=== PATIENT | male | born 1950 | race Caucasian/White ===

== ENCOUNTER → 2018-06-18 10:58 | Outpatient (REF) | payer MEDICARE, OTHER, SELFPAY ==
[2018-06-18 11:34] LABS: HCT 41.9 % (40.0-50.0); HGB 14.5 g/dL (13.5-17.5); Mean Corp. HGB Concentration 34.6 g/dL (32.0-36.0); Mean Corpuscular Hemoglobin 31.5 pg (27.0-33.0); Mean Corpuscular Volume 90.9 fL (80-95); Mean Platelet Volume 9.3 fL (8.0-11.0); Platelet Count 267 x1000/uL (130-400); RBC 4.61 m/cumm (4.50-6.00); White Blood Cell Count 7.38 k/cumm (4.4-10.8)
[2018-06-18 12:13] LABS: ALT 22 U/L (12-78); AST 18 U/L (15-37); Albumin 3.8 g/dL (3.4-5.0); Alkaline Phosphatase 126 U/L (46-116); Anion Gap 9.2 mmol/L (3-11); BUN 22 mg/dL (7-18); Bilirubin, Total 0.4 mg/dL (0.2-1.0); CO2 27.8 mmol/L (21.0-32.0); CREATININE 1.13 mg/dL (0.70-1.30); Calcium 8.8 mg/dL (8.5-10.1); Chloride 104 mmol/L (98-107); Glucose 107 mg/dL (70-100); Potassium 4.7 mmol/L (3.5-5.1); Sodium 141 mmol/L (136-145); Total Protein 6.6 g/dL (6.4-8.2)
== END ==
LOC: LBO 10:58
PROVIDERS: PCP Nurse Practitioner Family; Visit Provider Podiatrist Foot & Ankle Surgery
DX: B35.1 Tinea unguium (principal)
CPT/HCPCS: 36415; 80053; 85027

== ENCOUNTER 2018-06-26 14:00 | Outpatient (RCR) | payer MEDICARE, OTHER, SELFPAY ==
--- NOTE | 2018-06-11 14:09 | PTTR_ITS ---
DATE: 06/11/18 SUBJECTIVE: Reinier states that his left Achilles is a little sore. He admits he did a lot of walking while on vacation, and did not use a boot. Reports compliancy with his HEP. Admits he is having a little bit more swelling around the Achilles. OBJECTIVE: Manual therapy: (04024q9). IASTM via Graston Techniques through the gastroc soleus complex with fanning and sweeping with GT 4 and GT 5 as well as strumming along the medial and lateral borders of the Achilles with GT 3 and GT 6 for framing techniques at the calcaneal attachment site of the Achilles. He then completed strengthening via Wellness for an additional 30 minutes pushing cardiovascular activities, i.e. NuStep and treadmill as well as ankle stabilization. Unattended estim: (36694 x1). Prior to his ther-ex did apply Welsh stimulation to the Achilles x10 min. and reapplied his KT tape. * [x] Ultrasound - (x8 mins) - 28402g1: applied @1 megahertz 50% pulsed duty phonophoresis with Dex gel @1.0 watt per cm sq to the Achilles medial and lateral distally Direct treatment time: 45 minutes. MM/gc
--- NOTE | 2018-06-13 14:24 | PTTR_ITS ---
DATE: 06/13/18 SUBJECTIVE: Vikram indicates he feels the KT tape has been beneficial with his Achilles irritation on the left. OBJECTIVE: Manual therapy: (80182n6). Did received IASTM via edger tool throughout the gastroc soleus complex with focus on the medial and lateral borders of the Achilles while in prone. Also, received gentle stretching of the Achilles in this position. * x Electrical Stim Unattended - 14920z4: applied Maltese stimulation 10 seconds on /10 seconds off x10 minutes to the Achilles tendon region prior to performance of his Wellness Program today. * * [x] Ultrasound - (x [8] mins) - 91995l[1]: applied @3 megahertz 50% duty cycle @1.0 watt per cm sq to the medial and lateral Achilles region with Dex gel Reapplied KT tape at the conclusion of the estim. Went on to complete his Wellness Program with assisted personnel at no charge. Direct treatment time: 45 minutes Total treatment time: 75 minutes SG/gc
--- NOTE | 2018-06-16 14:18 | PTTR_ITS ---
DATE: 06/16/18 SUBJECTIVE: Reinier states he continues to walk his dog 1 to 2 miles per day around his house. Overall, is holding up well. Finds the Kinesio tape to offer good symptom reduction. OBJECTIVE: Manual therapy: (02895q9). IASTM via Graston Techniques with fanning and sweeping with GT 4 and GT 5 through the gastroc and soleus followed by calcaneal framing with GT 3 and light strumming along the medial and lateral borders of the Achilles, distal aspect. Therapeutic procedures (11705s8). * x See flow sheet: progressed with resistance exercises for inversion, eversion, plantar and dorsiflexion. * [x] Ultrasound - (x [8] mins) - 15474s[1]: applied @3 megahertz pulsed duty, 50%, @1 watt per cm sq to the Achilles tendon medial and lateral aspects with Dexamethasone Direct treatment time: 3:00 til 3:45 P.M. Continued strengthening done via Wellness at no charge. Plan: Continue as indicated above. MM/gc
--- NOTE | 2018-06-19 15:30 | PTTR_ITS ---
DATE: 06/19/18 SUBJECTIVE: Carl reports that he still struggles with Achilles discomfort, although it is slowly getting better. OBJECTIVE: Manual therapy: (40368h2). IASTM of left Achilles tendon. STM using CFM and PRT's t/o gastroc and soleus. ROM t/o foot and ankle. Therapeutic procedures ([id number]). * x See flow sheet: for global LE strength and stabilization. * x Provided skilled instruction in proper exercise performance: avoiding compensation. * x Ultrasound - (x 8 mins) - [id number]: 50% pulsed with dex to Achilles at 1.1 w/cm2. Direct treatment time: 45 min Total treatment time: 60 min
--- NOTE | 2018-06-23 15:28 | PTTR_ITS ---
DATE: 06/23/18 SUBJECTIVE: Carl states that he is doing well. He continues to have soreness in his Achilles but notes slow improvements. OBJECTIVE: Manual therapy: (85593h8). STM t/o gastroc/soleus region using PRT's. CFM over Achilles and calcaneal tuberosity. ROM t/o foot and ankle t/o all planes. I did utilized Graston tools with IASTM t/o Achilles.I applied kinesiotape using I strip to Achilles with myofascial corrections. Therapeutic procedures (42502v3). * x See flow sheet: for global LE strength and stabilization with focus on proprioception ex. * x Provided skilled instruction in proper exercise performance: proper glut and core engagement. * x Ultrasound - (x 8 mins) - 90319y3: 50% pulsed to Achilles at 3 MHZ and 1.0 w/cm2 Direct treatment time: 45 min Total treatment time: 70 min finished via wellness at no charge.
--- NOTE | 2018-06-26 09:32 | PTTR_ITS ---
DATE: 06/26/18 SUBJECTIVE: Carl reports that he is noting less sensitivity today. 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 States that he sees his MD next week. OBJECTIVE: Manual therapy: (48081c9). CFM over Achilles tendon. STM t/o gastroc and soleus. I also performed IASTM using Graston tools with focus on medial aspect of Achilles. ROM t/o foot and ankle. Therapeutic procedures (79448b6). * x See flow sheet: global LE strength and stabilization with focus on ankle. Eccentric strengthening of calf as well as balance and proprioceptive ex. * x Provided skilled instruction in proper exercise performance: postural cues. * x Ultrasound - (x 8 mins) - 26041f5: 50% pulsed at 3 MHZ and 1.1 w/cm2 to Achilles. Direct treatment time: 45 min Total treatment time: 90 min ( no charge for cardio)
== END 2018-07-04 23:59 | disposition home or self-care (01) ==
LOC: PT 14:00
PROVIDERS: PCP Nurse Practitioner Family; Referring Provider Podiatrist Foot & Ankle Surgery; Visit Provider Podiatrist Foot & Ankle Surgery
DX: S96.811D Strain of other specified muscles and tendons at ankle and foot level, right foot, subsequent encounter (principal)
CPT/HCPCS: 97014; 97035; 97110; 97140

== ENCOUNTER 2018-07-17 09:53 | Outpatient (CLI) | payer MEDICARE, OTHER, SELFPAY ==
[2018-07-17 10:15] LABS: HCT 42.5 % (40.0-50.0); HGB 14.8 g/dL (13.5-17.5); Mean Corp. HGB Concentration 34.8 g/dL (32.0-36.0); Mean Corpuscular Hemoglobin 31.4 pg (27.0-33.0); Mean Corpuscular Volume 90.2 fL (80-95); Mean Platelet Volume 9.1 fL (8.0-11.0); Platelet Count 247 x1000/uL (130-400); RBC 4.71 m/cumm (4.50-6.00); RBC Distribution Width 12.8 % (11.8-14.1); White Blood Cell Count 7.94 k/cumm (4.4-10.8)
[2018-07-17 11:00] LABS: ALT 25 U/L (12-78); AST 11 U/L (15-37); Albumin 3.6 g/dL (3.4-5.0); Alkaline Phosphatase 133 U/L (46-116); Anion Gap 3.5 mmol/L (3-11); BUN 26 mg/dL (7-18); Bilirubin, Total 0.4 mg/dL (0.2-1.0); CO2 30.5 mmol/L (21.0-32.0); CREATININE 1.09 mg/dL (0.70-1.30); Calcium 8.8 mg/dL (8.5-10.1); Chloride 103 mmol/L (98-107); Glucose 182 mg/dL (70-100); Potassium 4.9 mmol/L (3.5-5.1); Sodium 137 mmol/L (136-145); Total Protein 6.4 g/dL (6.4-8.2)
== END 2018-07-17 10:13 ==
PROVIDERS: PCP Nurse Practitioner Family; Visit Provider Podiatrist Foot & Ankle Surgery
DX: B35.1 Tinea unguium (principal)
CPT/HCPCS: 36415; 80053; 85027

== ENCOUNTER 2021-04-17 02:59 | Outpatient (CLI) | payer MEDICARE, OTHER, SELFPAY ==
[2021-04-17 15:43] LABS: Anion Gap 6.5 mmol/L (3-11); BUN 22 mg/dL (7-18); CO2 31.5 mmol/L (21.0-32.0); Calcium 8.9 mg/dL (8.5-10.1); Chloride 104 mmol/L (98-107); Ferritin 17 ng/mL (26-388); Folate 19.8 ng/mL (8.6-20.0); Glucose 134 mg/dL (74-106); Potassium 4.4 mmol/L (3.5-5.1); Sodium 142 mmol/L (136-145); Vitamin B12 263 pg/mL (193-986)
[2021-04-18 15:46] LABS: Albumin 65.8 % (55.8-66.1); Immunotyping, Serum (See Note)
== END 2021-04-17 03:00 | disposition home or self-care (01) ==
LOC: LBO 03:01
PROVIDERS: PCP Nurse Practitioner Family; Visit Provider Internal Medicine Nephrology
DX: G62.9 Polyneuropathy, unspecified (principal); E87.5 Hyperkalemia
CPT/HCPCS: 36415; 80048; 82607; 82728; 82746; 84155; 84165; 86320

== ENCOUNTER 2021-05-28 11:43 | Emergency (ER) | payer MEDICARE, OTHER, SELFPAY ==
[2021-05-28 11:47] VITALS: BP 148/74; PULSE 63; RESP 16; TEMP 36.3; O2SAT 97
--- NOTE | 2021-05-28 12:00 | DI.RAD_ITS ---
Exam(s) XR HAND LT COMPLETE EXAM: XR HAND LT COMPLETE CLINICAL HISTORY: laceration 1-3 distal. TECHNIQUE: 2D digital imaging was performed. COMPARISON: No exams were available for comparison FINDINGS: BONES: There has been a small amputation of the terminal tuft of the thumb. There are tiny osseous f ragments in the soft tissues of the thumb. No bony destructive lesion is seen. JOINTS: No dislocation present. SOFT TISSUE: Soft tissue defects are seen in the tips of the 1st, 2nd and 3rd fingers. There is soft tissue swelling seen of the 1st, 2nd and 3rd fingers. IMPRESSION: Small amputation of the terminal tuft of the thumb. Tiny osseous fragments are seen in the adjacent soft tissues of the thumb. DATA REPOSITORY: RADIATION DOSE DELIVERED:
--- NOTE | 2021-05-28 12:13 | W.ED.GENAD ---
Discharge Plan Disposition Patient Disposition: HOME Discharge Details Clinical Impression: Fingernail avulsion, partial, Laceration of finger of left hand, Fracture of thumb, left, open, Open fracture of tuft of distal phalanx of left thumb Primary Care Provider: Eneida Ybarra ED Provider: Shawn Kramer Home Meds and New Rx's Prescriptions: New cephalexin 500 mg capsule 500 mg PO TID Qty: 20 RF: 0 Continued metoprolol succinate 100 mg cap,sprinkle,ER 24hr dose pack 100 mg PO DAILY RF: 0 urea 10 % cream 1 applic TP BID Qty: 71 RF: 0 clotrimazole 1 % ointment 1 applic TP BID Qty: 56.7 RF: 0 losartan 50 MG tablet 50 mg PO DAILY RF: 0 aspirin [Aspir-81] 81 MG tablet,delayed release (DR/EC) 81 mg PO DAILY RF: 0 simvastatin 20 MG tablet 20 mg PO DAILY RF: 0 gabapentin 300 MG capsule 300 mg PO HS RF: 0 metformin [Glucophage] 1,000 MG tablet 1,000 mg PO BID@0800,1700 RF: 0 Jardiance 10 mg tablet 10 mg PO DAILY RF: 0 Discharge Instructions Instructions: Finger Laceration (ED), Nail Avulsion (ED) Additional Instructions: Please keep wound dressing intact. Please follow-up with orthopedics -call tomorrow to schedule follow-up appointment. Take antibiotic as prescribed. Please contact your primary care physician to arrange follow-up. Return to the ER for any worsening or new concerning symptoms. Referrals: [facility] [Provider Group] Eneida Ybarra NP [Primary Care Provider] - Discharge Data Discharge Date/Time-TO BE ENTERED AT DEPARTURE: 05/28/21 13:24 Medical Decision Making 70-year-old male here having just sustained a table saw injury resulting in partial avulsion left digits 1, 2 and 3. Oozing blood. Tetanus up-to-date. Digital block performed without complication. X-ray of the left hand reviewed: No fracture of first or second digits, distal phalanx of the thumb seems to have subtle fracture that very distal tip. Suspect open fracture. I will treat with Keflex. Wounds were irrigated with copious sterile saline. Wounds are not amenable to primary closure. Wounds were dressed with Xeroform and sterile dressing applied. I have recommended patient follow-up with hand specialist-I will refer to [facility]. HPI General Mode of arrival: ambulatory. Date/Time Provider Initiated Documentation: 05/28/21 11:47. Limitations to Documentation: no limitations. Information obtained by: patient. HPI Narrative: 70-year-old male presents with chief complaint of laceration. Patient sustained laceration to left first second and third digits just prior to arrival. Wounds have been bleeding since injury. Bleeding improved with dressing. Patient notes excellently cut his fingers with a table saw. No other injury. Related Data Home Medications Medication Instructions Recorded Confirmed metformin [Glucophage] 1,000 mg PO BID@0800,1700 06/29/16 05/28/21 aspirin [Aspir-81] 81 mg PO DAILY tab-cap 05/16/17 05/28/21 losartan 50 mg PO DAILY tab-cap 05/16/17 05/28/21 simvastatin 20 mg PO DAILY tab-cap 05/16/17 05/28/21 gabapentin 300 mg PO HS 07/15/17 05/28/21 clotrimazole 1 % topical ointment 1 applic TP BID #56.7 gm 01/06/19 05/28/21 metoprolol succinate 100 mg 100 mg PO DAILY 01/06/19 05/28/21 capsule sprinkle, ext. release 24 hr urea 10 % topical cream 1 applic TP BID #71 gm 01/06/19 05/28/21 Jardiance 10 mg PO DAILY 05/28/21 05/28/21 cephalexin 500 mg PO TID #20 cap 05/28/21 Previous Rx's Medication Instructions Recorded clotrimazole 1 % topical ointment 1 applic TP BID #56.7 gm 01/06/19 urea 10 % topical cream 1 applic TP BID #71 gm 01/06/19 cephalexin 500 mg PO TID #20 cap 05/28/21 Allergies Allergy/AdvReac Type Severity Reaction Status Date / Time No Known Allergies Allergy Unverified 05/28/21 11:50 General Stated Complaint: Laceration LAURA: 3 Review of Systems Musculoskeletal Musculoskeletal: Denies muscle weakness and Denies numbness Integumentary/Breasts Skin/Breast: Reports as per HPI Neurologic Neurologic: Denies numbness [facility] Medical History Anxiety Atrial fibrillation HLD (hyperlipidemia) HTN (hypertension) Insomnia Prostate cancer RLS (restless legs syndrome) T2DM (type 2 diabetes mellitus) Surgical History Laminectomy (~1999) L2-L5 Laminectomy L5-S1 (~2001) With spinal fusion Family History Mother , Pneumonia at age 92. No problems noted. Father , Parkinson's at age 87. Parkinson's disease Sister No problems noted. Sister No problems noted. Sister No problems noted. Brother No problems noted. Son No problems noted. Son No problems noted. Social History Smoking/Tobacco Use Status: Never Smoking risk assessment performed?: Yes Alcohol Intake: current Alcohol Intake frequency: a few times a week Drug use: Never Substance use type: does not use Exam Const General: cooperative and no acute distress Skin Trauma: laceration (Partial avulsion distal first, second, third digit left oozing blood) Extrem Left upper extremity: hand Details: normal ROM of fingers and laceration (CT scan, partial avulsion distal 1st-3rd digits) Course Vital Signs Vital signs: Vital Signs Temperature 36.3 C L 05/28/21 11:47 Pulse 63 05/28/21 11:47 Respiratory Rate 16 05/28/21 11:47 Blood Pressure 148/74 H 05/28/21 11:47 Pulse Oximetry 97 05/28/21 11:47 Temperature 36.3 C L 05/28/21 11:47 Temperature Source Skin 05/28/21 11:47 Pulse 63 05/28/21 11:47 Respiratory Rate 16 05/28/21 11:47 Respiratory Effort Non-Labored 05/28/21 11:47 Blood Pressure 148/74 H 05/28/21 11:47 Blood Pressure Position Sitting 05/28/21 11:47 Pulse Oximetry 97 05/28/21 11:47 Oxygen Delivery Method Room Air 05/28/21 11:47 Oxygen Flow Rate 0 05/28/21 11:47 Pain Level 0 05/28/21 11:47 Procedures Nerve Block Nerve Block 1: Time out performed: Yes Local Anesthetic: Lidocaine 1% Amount of anesthesia used (mL): 5 Side: left Nerve Blocks: digital Procedure Successful: Yes Patient Tolerated Procedure: well Additional Comments: Dental block performed on digits 1, 2 and 3
--- NOTE | 2021-05-28 13:01 | DI.VRAD_ITS ---
PROCEDURE INFORMATION: Exam: XR Left Hand Exam date and time: 05/28/2021 12:09 PM Age: 70 years old Clinical indication: Injury or trauma; Other: Laceration 1-3; Amputation, traumatic; Finger; Left thumb TECHNIQUE: Imaging protocol: XR Left hand. Views: 3 or more views. COMPARISON: No relevant prior studies available. FINDINGS: Bones/joints: Amputation distal tuft 1st digit. Deformity of distal soft tissues with punctate bone fragments evident. Osteoarthritic changes 1st carpometacarpal joint. Soft tissues: Soft tissue deformities 2nd and 3rd digits without osseous abnormalities. IMPRESSION: 1. Amputation distal tuft 1st digit. Deformity of distal soft tissues with punctate bone fragments evident. 2. Soft tissue deformities 2nd and 3rd digits without osseous abnormalities. Dictated and Authenticated by: Carissa Youngblood MD. Ordering:PATY Escobar MD
[2021-05-28] MEDS: Lidocaine 1% Multi-Dose 50 ML VIAL IJ (13:21)
[2021-05-28] MEDS: Cephalexin 500 MG CAP PO (13:21)
== END 2021-05-28 13:24 | disposition home or self-care (01) ==
PROVIDERS: Emergency Provider Student in an Organized Health Care Education/Training Program; PCP Nurse Practitioner Family
DX: S62.522B Displaced fracture of distal phalanx of left thumb, initial encounter for open fracture (principal); S61.211A Laceration without foreign body of left index finger without damage to nail, initial encounter; S61.213A Laceration without foreign body of left middle finger without damage to nail, initial encounter; W31.2XXA Contact with powered woodworking and forming machines, initial encounter; M25.542 Pain in joints of left hand
CPT/HCPCS: 64450; 99283; 73130

== ENCOUNTER → 2021-06-01 08:00 | Outpatient (BNVA) | payer MEDICARE, OTHER, SELFPAY | PROVIDERS: PCP Nurse Practitioner Family; Referring Provider Nurse Practitioner Family; Visit Provider Student in an Organized Health Care Education/Training Program | DX: S61.112A Laceration without foreign body of left thumb with damage to nail, initial encounter (principal); S61.311A Laceration without foreign body of left index finger with damage to nail, initial encounter; S61.213A Laceration without foreign body of left middle finger without damage to nail, initial encounter; W31.2XXA Contact with powered woodworking and forming machines, initial encounter | CPT/HCPCS: 99213 ==

== ENCOUNTER 2022-01-12 08:37 | Emergency (ER) | payer MEDICARE, OTHER, SELFPAY ==
[2022-01-12 08:47] VITALS: BP 137/91; PULSE 77; RESP 16; TEMP 36.1; O2SAT 100
--- NOTE | 2022-01-12 09:00 | ED.GENADUL_ITS ---
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 [place]- urea 10 % cream 1 applic TP BID Qty: 71 0RF clotrimazole 1 % ointment 1 applic TP BID Qty: 56.7 0RF losartan 50 MG tablet 50 mg PO DAILY 0RF aspirin [Aspir-81] 81 MG tablet,delayed release (DR/EC) 81 mg PO DAILY 0RF simvastatin 20 MG tablet 20 mg PO DAILY 0RF gabapentin 300 MG capsule 300 mg PO HS 0RF metformin [Glucophage] 1,000 MG tablet 1,000 mg PO BID@0800,1700 0RF Jardiance 10 mg tablet 10 mg PO DAILY 0RF Label Comments: TAKE 1 TABLET BY MOUTH EVERY DAY Discharge Instructions Instructions: Head Injury (ED) Additional Instructions: Please take Tylenol as needed for pain Take this as recommended on bottle Return should he develop vomiting, worsening headache, gait unsteadiness, or she have any new or worsening complaints Referrals: Eneida Ybarra, [facility] [Primary Care Provider] - Medical Decision Making Given patient's age, [place] head CT recommend considering head CT and I discussed this with understanding and he prefers imaging Although his exam is nonfocal, I will proceed with CT head and cervical spine Views do not show acute abnormality per radiology interpretation in my review Discharge home stable condition with stable vitals, return precautions discussed and patient expressed understanding Ambulatory with steady gait at time of discharge home, asymptomatic Wound care performed by me Tetanus up-to-date per patient Medical Records Medical records reviewed: Yes I reviewed the patient's medical records. HPI General Date/Time Provider Initiated Documentation: 01/12/22 08:47 . HPI Narrative: This 71-year-old gentleman with history of hypertension, hyperlipidemia, and [id number] diabetes presents with report of slip and fall on ice. Patient states he was walking out to his shed to work on a project when he tripped and then slipped on ice, hitting the back of the head and buttocks. He denies any loss of consciousness. She denies any current headache or dizziness. He denies any vision change. He takes an 81 mg aspirin daily but denies any actual anticoagulation. The event occurred approximately an hour and a half prior to arrival. He denies any strength or sensation change. He denies any dizziness or. He denies any abdominal pain, chest pain, shortness. Related Data Home Medications Medication Instructions Recorded Confirmed metformin 1,000 mg tablet 1,000 mg PO BID@0800,1700 06/29/16 01/12/22 (Glucophage) aspirin 81 mg tablet,delayed 81 mg PO DAILY tab-cap 05/16/17 01/12/22 release (Aspir-) losartan 50 mg tablet 50 mg PO DAILY tab-cap 05/16/17 01/12/22 simvastatin 20 mg tablet 20 mg PO DAILY tab-cap 05/16/17 01/12/22 gabapentin 300 mg capsule 300 mg PO HS 07/15/17 01/12/22 clotrimazole 1 % topical ointment 1 applic TP BID #56.7 gm 01/06/19 01/12/22 metoprolol succinate 100 mg 100 mg PO DAILY 01/06/19 01/12/22 capsule sprinkle, ext. release 24 hr urea 10 % topical cream 1 applic TP BID #71 gm 01/06/19 01/12/22 empagliflozin 10 mg tablet 10 mg PO DAILY 05/28/21 01/12/22 (Jardiance) Previous Rx's Medication Instructions Recorded clotrimazole 1 % topical ointment 1 applic TP BID #56.7 gm 01/06/19 urea 10 % topical cream 1 applic TP BID #71 gm 01/06/19 Allergies Allergy/AdvReac Type Severity Reaction Status Date / Time No Known Allergies Allergy Verified 01/12/22 08:50 General Stated Complaint: HeadInjury LAURA: 3 Review of Systems All systems reviewed & are unremarkable except as noted in HPI and below PFSH All Active Problems (Updated 01/12/22 @ 09:33 by TYRONE Keen) Head injury (Acute) Abrasion of scalp (Acute) Fingernail avulsion, partial (Acute 05/28/21) Laceration of finger of left hand (Acute 05/28/21) Fracture of thumb, left, open (Acute) Open fracture of tuft of distal phalanx of left thumb (Acute) Medical History Anxiety Atrial fibrillation HLD (hyperlipidemia) HTN (hypertension) Insomnia Prostate cancer RLS (restless legs syndrome) T2DM (type 2 diabetes mellitus) Surgical History Laminectomy (~1999) L2-L5 Laminectomy L5-S1 (~2001) With spinal fusion Family History Mother , Pneumonia at age 92. No problems noted. Father , Parkinson's at age 87. Parkinson's disease Sister No problems noted. Sister No problems noted. Sister No problems noted. Brother No problems noted. Son No problems noted. Son No problems noted. Social History Smoking/Tobacco Use Status: Never Smoking risk assessment performed?: Yes Alcohol Intake: current Alcohol Intake frequency: a few times a week Drug use: Never Substance use type: does not use Exam Const General: cooperative, comfortable and no acute distress HENNV Head: no palpable skull fracture Other: No hemotympanum, uvula midline, small abrasion noted to the occipital region, no hematoma, no Eyes Pupils: PERRL Neck Other: No midline tenderness Chest Other: No chest wall tenderness Resp Effort & Inspection: normal respiratory effort Other: Lungs clear to auscultation Cardio Rate: regular rate Rhythm: regular rhythm GI Inspection: normal to inspection Other: Nontender abdominal exam Back/Spine/Pelvis Other: No midline tenderness to thoracic or lumbar spine Skin Other: Abrasion occipital Neuro General: patient alert and patient oriented x3 Cranial Nerves: CN's II-XI intact bilaterally Other: GCS 15 Strength and sensation intact distally Ambulatory steady gait Extrem General: normal to inspection Course Vital Signs Vital signs: Vital Signs Temperature 36.1 C L 01/12/22 08:47 Pulse 77 01/12/22 08:47 Respiratory Rate 16 01/12/22 08:47 Blood Pressure 137/91 H 01/12/22 08:47 Pulse Oximetry 100 01/12/22 08:47 Temperature 36.1 C L 01/12/22 08:47 Temperature Source Skin 01/12/22 08:47 Pulse 77 01/12/22 08:47 Respiratory Rate 16 01/12/22 08:47 Respiratory Effort 01/12/22 08:47 Blood Pressure 137/91 H 01/12/22 08:47 Blood Pressure Position Sitting 01/12/22 08:47 Pulse Oximetry 100 01/12/22 08:47 Oxygen Delivery Method Room Air 01/12/22 08:47 Oxygen Flow Rate 0 01/12/22 08:47 Pain Level 0 01/12/22 08:47
--- NOTE | 2022-01-12 09:11 | DI.CT_ITS ---
Exam(s) CT HEAD CERVICAL SPINE WO EXAM: CT HEAD CERVICAL SPINE WO CLINICAL HISTORY: fall, [place], on asa. TECHNIQUE: Imaging Protocol: Axial computed tomography images with coronal and sagittal reformatted images were created and reviewed COMPARISON: No exams were available for comparison FINDINGS: BRAIN: There are no skull fractures nor fluid in the visualized paranasal sinuses. There is mucoperiosteal thickening in the right maxillary sinus which most probably indicates chronic sinusitis findings. Si milar finding not seen in the left maxillary sinus nor in the visualized sphenoid and frontal sinuses . There is no evidence of intracranial hemorrhage, mass effect, or shift of midline structures. There are no extra-axial fluid collections. The ventricles are not enlarged or shifted and there is no blo od within the ventricular system nor within the basal cisterns. CERVICAL SPINE: There is no evidence of fracture nor listhesis. No significant prevertebral soft tissue swelling. Multilevel chronic degenerative disc disease. Also multilevel facet arthropathy. There is no significant facet joint malalignment. No significant osseous lesions evident. IMPRESSION: No acute intracranial findings on this noninfused CT scan of the brain.Mucoperiosteal thickening inci dentally noted in the right maxillary sinus chronic sinusitis. No fluid level therein. No evidence of cervical spine fracture, malalignment, nor acute compromise of the cervical spinal can al. Multilevel degenerative chronic disc disease and facet arthropathy. Report called by myself to ER provider peer RADIATION DOSE DELIVERED: 1,483.95mGy.cm Total DLP DATA REPOSITORY: All CT scans at this facility are submitted to the National Radiology Data Registry (NRDR) Dose Index Registry (DIR) with the [employer] (A[employer]). RADIATION OPTIMIZATION: All CT scans at this facility use at least one of these dose optimization te chniques: automated exposure control; mA and/or kV adjustment per patient size (includes targeted exa ms where dose is matched to clinical indication); or iterative reconstruction.
== END 2022-01-12 09:44 | disposition home or self-care (01) ==
PROVIDERS: Emergency Provider Physician Assistant; PCP Nurse Practitioner Family
DX: S09.8XXA Other specified injuries of head, initial encounter (principal); S00.01XA Abrasion of scalp, initial encounter; W00.0XXA Fall on same level due to ice and snow, initial encounter
CPT/HCPCS: 99284; 70450; 72125; 99283

== ENCOUNTER 2022-07-25 14:13 | Outpatient (REF) | payer MEDICARE, OTHER, SELFPAY ==
[2022-07-27 11:35] LABS: COVID-19 RT-PCR UVMMC Result Negative (Negative)
== END 2022-07-25 14:14 | disposition home or self-care (01) ==
LOC: LBN 14:13
PROVIDERS: PCP Nurse Practitioner Family; Visit Provider Nurse Practitioner Family
DX: Z20.822 Contact with and (suspected) exposure to COVID-19 (principal)
CPT/HCPCS: U0003

== ENCOUNTER 2024-02-08 17:30 | Emergency (ER) | payer MEDICARE, OTHER, SELFPAY ==
[2024-02-08 17:35] VITALS: BP 140/79; PULSE 68; RESP 16; TEMP 36.6; O2SAT 98
[2024-02-08 17:51] VITALS: PULSE 100; O2SAT 96
--- NOTE | 2024-02-08 18:14 | ED.GENADUL_ITS ---
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 No insulin. Dispense covered brand. (DME) blood-glucose meter Misc See Rx Instructions .MEDSUPPLY Qty: 1 0RF Rx Instructions: As directed to check blood glucose daily. No insulin. Dispense covered brand. (DME) lancets Misc See Rx Instructions .MEDSUPPLY Qty: 100 3RF Rx Instructions: As directed to check blood glucose daily. No insulin. Dispense covered brand. losartan 50 MG tablet 50 mg PO DAILY aspirin [Aspir-81] 81 MG tablet,delayed release (DR/EC) 81 mg PO DAILY simvastatin 20 MG tablet 20 mg PO DAILY gabapentin 300 MG capsule 300 mg PO HS metformin [Glucophage] 1,000 MG tablet 1,000 mg PO BID@0800,1700 Jardiance 10 mg tablet 10 mg PO DAILY Patient Comments: TAKE 1 TABLET BY MOUTH EVERY DAY amitriptyline 25 mg tablet 25 mg PO DAILY Patient Comments: TAKE 1 TABLET BY MOUTH AT BEDTIME pramipexole 0.5 mg tablet 0.5 mg PO DAILY Patient Comments: TAKE 1 TABLET BY MOUTH ONCE DAILY Discharge Instructions Instructions: Laceration (ED) Additional Instructions: Watch for any signs of infection and return immediately to the emergency department if these occur. Otherwise keep dressing in place for the next 24 hours and then keep wound clean and dry. Return to the emergency department 10 days for suture removal. Referrals: Eneida Ybarra NP [Primary Care Provider] - (As needed for reassessment) Discharge Data Discharge Date/Time-TO BE ENTERED AT DEPARTURE: 02/08/24 18:26 HPI General Mode of arrival: ambulatory . Date/Time Provider Initiated Documentation: 02/08/24 17:45 . Limitations to Documentation: no limitations . Information obtained by: patient . History of Present Illness 73 year old M presents to the emergency department with the chief complaint of Right hand laceration, described as mild, Patient started experiencing this hour(s) (1) and it has been constant. No relieving factors improve symptom(s), No exacerbating factors reported . Patient notes no other symptoms.. Patient did receive the following treatments prior to arrival, none Related Data Home Medications Medication Instructions Recorded Confirmed metformin 1,000 mg tablet 1,000 mg PO BID@0800,1700 06/29/16 02/08/24 (Glucophage) aspirin 81 mg tablet,delayed 81 mg PO DAILY 05/16/17 02/08/24 release (Aspir-) losartan 50 mg tablet 50 mg PO DAILY 05/16/17 02/08/24 simvastatin 20 mg tablet 20 mg PO DAILY 05/16/17 02/08/24 gabapentin 300 mg capsule 300 mg PO HS 07/15/17 02/08/24 metoprolol succinate 100 mg 100 mg PO DAILY 01/06/19 02/08/24 capsule sprinkle, ext. release 24 hr empagliflozin 10 mg tablet 10 mg PO DAILY 05/28/21 02/08/24 (Jardiance) blood sugar diagnostic (Blood #100 ea 04/23/22 02/08/24 Glucose Test strips) blood-glucose meter #1 ea 04/23/22 02/08/24 cyanocobalamin (vitamin B-12) PO 04/23/22 04/23/22 lancets #100 ea 04/23/22 02/08/24 amitriptyline 25 mg tablet 25 mg PO DAILY 02/08/24 02/08/24 pramipexole 0.5 mg tablet 0.5 mg PO DAILY 02/08/24 02/08/24 Previous Rx's Medication Instructions Recorded blood sugar diagnostic (Blood #100 ea 04/23/22 Glucose Test strips) blood-glucose meter #1 ea 04/23/22 lancets #100 ea 04/23/22 Allergies Allergy/AdvReac Type Severity Reaction Status Date / Time No Known Allergies Allergy Verified 02/08/24 17:36 General Stated Complaint: Laceration LAURA: 4 Review of Systems Cardiovascular Cardiovascular: Denies syncope Musculoskeletal Musculoskeletal: Denies limited range of motion, Denies numbness and Denies tingling Integumentary/Breasts Skin/Breast: Reports as per HPI Neurologic Neurologic: Denies syncope, Denies numbness and Denies tingling Exam Const General: cooperative, no acute distress and not ill appearing Orientation: alert, awake and oriented x3 HENMT Mouth: moist mucous membranes Resp Effort & Inspection: normal respiratory effort, able to speak in complete sentences and no respiratory distress Skin General skin exam: no rashes or lesions noted Neuro General: patient alert, patient awake, patient oriented x3, moves all extremities and no focal motor deficits Sensory Exam: no sensory deficits noted Extrem General: normal exam except as noted Right upper extremity: hand Details: normal capillary refill, neuromotor exam normal, neurosensory exam normal, vascular exam Details: radial pulse present and normal capillary refill, normal ROM of fingers and laceration palm ulnar aspect proximal Details: linear, actively bleeding, involving subcutaneous tissue, with motor nerve function intact and with sensation intact Course Vital Signs Vital signs: Vital Signs Temperature 36.6 C 02/08/24 17:35 Pulse 68 02/08/24 17:35 Respiratory Rate 16 02/08/24 17:35 Blood Pressure 140/79 02/08/24 17:35 Pulse Oximetry 98 02/08/24 17:35 Temperature 36.6 C 02/08/24 17:35 Temperature Source Skin 02/08/24 17:35 Pulse 100 H 02/08/24 17:51 Respiratory Rate 16 02/08/24 17:35 Respiratory Effort Normal, Non-Labored 02/08/24 17:38 Blood Pressure 140/79 02/08/24 17:35 Blood Pressure Position Sitting 02/08/24 17:35 Pulse Oximetry 96 02/08/24 17:51 Oxygen Delivery Method Room Air 02/08/24 17:51 Oxygen Flow Rate 0 02/08/24 17:51 Pain Level 0 02/08/24 17:35 Procedures Laceration Laceration 1: Site: hand Side (If applicable): right Size (cm): 2.5 Description: linear Depth: simple, single layer Local Anesthetic: Lidocaine 1% and with Epi Amount of anesthesia used (mL): 2 Pre-repair: wound explored, irrigated extensively and deep structures intact Skin layer closed with: other (Prolene) Size (cm): 4-0 Number of sutures: 2 Technique: simple, interrupted Medical Decision Making Patient presenting the emergency department for chief complaint of right palmar laceration 2.5 cm. Please see procedure note for repair. Patient up-to-date on tetanus. Two 4-0 Prolene sutures were placed and wound was appropriately approximated after repair. After discussion of diagnosis and plan of care brittany ortez has no further needs, questions, or concerns and states clear understanding to return to the emergency department for any worsening symptoms. This documentation was generated using Interview Rocketation system, please disregard any oddities of phrase or misspellings. Quality:SDOH Health Related Social Needs: No Data to Display PFSH All Active Problems Hand laceration (Acute) Atrial fibrillation (Chronic) HLD (hyperlipidemia) (Chronic) HTN (hypertension) (Chronic) T2DM (type 2 diabetes mellitus) (Chronic) Medical History Open fracture of tuft of distal phalanx of left thumb Fingernail avulsion, partial (05/28/21) RLS (restless legs syndrome) Anxiety Prostate cancer Insomnia Surgical History Laminectomy L5-S1 (~2001) With spinal fusion Laminectomy (~1999) L2-L5 Family History Mother , Pneumonia at age 92. No problems noted. Father , Parkinson's at age 87. Parkinson's disease Sister No problems noted. Sister No problems noted. Sister No problems noted. Brother No problems noted. Son No problems noted. Son No problems noted. Social History Smoking/Tobacco Use Status: Never Smoking risk assessment performed?: Yes Alcohol Intake: current Alcohol Intake frequency: a few times a week Drug use: Never Substance use type: does not use
[2024-02-08 18:24] VITALS: PULSE 89; O2SAT 96
== END 2024-02-08 18:26 | disposition home or self-care (01) ==
PROVIDERS: Emergency Provider Nurse Practitioner Family; PCP Nurse Practitioner Family
DX: S61.411A Laceration without foreign body of right hand, initial encounter (principal); W26.0XXA Contact with knife, initial encounter; Y93.89 Activity, other specified; E78.5 Hyperlipidemia, unspecified; I10 Essential (primary) hypertension; E11.9 Type 2 diabetes mellitus without complications; I48.91 Unspecified atrial fibrillation; Z79.82 Long term (current) use of aspirin; Z79.84 Long term (current) use of oral hypoglycemic drugs
CPT/HCPCS: 12001; 99283

== ENCOUNTER 2024-07-07 16:03 | Outpatient (CLI) | payer MEDICARE, OTHER, SELFPAY ==
--- NOTE | 2024-07-07 10:45 | DI.RAD_ITS ---
Exam(s) XR HIP LT COMPLETE AP PELVIS EXAM: XR HIP LT COMPLETE AP PELVIS CLINICAL HISTORY: left hip pain, left thigh pain, M25.552. TECHNIQUE: 2D digital imaging was performed of the left hip. Three views were obtained. AP pelvis and lateral left hip views were obtained. COMPARISON: No exams were available for comparison FINDINGS: BONES: No acute fracture is present. No bony destructive lesion is seen. JOINTS: No dislocation present. Postsurgical changes are seen in the lower lumbosacral spine. Mild p rominence of the acetabuli bilaterally. The hip joints are otherwise well maintained. SOFT TISSUE: Normal. IMPRESSION: Mild degenerative changes seen in the left hip. DATA REPOSITORY: RADIATION DOSE DELIVERED:
--- NOTE | 2024-07-07 11:09 | DI.RAD_ITS ---
Exam(s) XR KNEE RT 3V AP,LAT,ADALI EXAM: XR KNEE RT 3V AP,LAT,ADALI CLINICAL HISTORY: right knee pain, M25.561. TECHNIQUE: 2D digital imaging was performed of the right knee. Three views obtained. AP, lateral an d PA tunnel views were obtained. COMPARISON: No exams were available for comparison FINDINGS: BONES: No acute fracture is present. No bony destructive lesion is seen. Enthesophyte is seen at the anterior superior patella. JOINTS: The knee is normally aligned. No joint effusion is seen. SOFT TISSUE: Normal. IMPRESSION: No acute abnormality. DATA REPOSITORY: RADIATION DOSE DELIVERED:
== END 2024-07-07 16:23 ==
LOC: DI 16:07
PROVIDERS: PCP Student in an Organized Health Care Education/Training Program; Visit Provider Nurse Practitioner
DX: M25.552 Pain in left hip (principal); M25.561 Pain in right knee
CPT/HCPCS: 73562; 73502

== ENCOUNTER 2024-08-06 01:24 | Outpatient (CLI) | payer MEDICARE, OTHER, SELFPAY ==
--- NOTE | 2024-08-06 07:45 | DI.MRI_ITS ---
Exam(s) MR LUMBAR SPINE WO EXAM: MR LUMBAR SPINE WO CLINICAL HISTORY: L leg pain,Numbness,H/O BACK SURGERY,RADICULOPATHY,M54.10,R20.0,Z98.890. TECHNIQUE: Multiplanar multisequence MRI of the Lumbar spine was performed. COMPARISON: Exam interpreted without benefit of comparison plain films. FINDINGS: Bones: The last intervertebral disc space is designated the L5/S1 level for the numbering purpose of this ex amination. Rudimentary disc at S1-2. The vertebral body heights are well maintained. Alignment: Degenerative spondylolisthesis at L3-4. The marrow signal characteristics are unremarkable. Cord: The conus tip ends at the T12 L1 level. It is of normal size and signal intensity. T12-L1: The disc height is maintained. No focal disc herniation is present. No central spinal canal stenosis.No neural foraminal stenosis. L1-2:There osteophytes which project anteriorly. The disc height is maintained. No focal disc herni ation is present. No central spinal canal stenosis.No neural foraminal stenosis. L2-3:Osteophytes which project anteriorly. Mild disc bulging. No focal disc herniation is present. No central spinal canal stenosis.No neural foraminal stenosis. L3-4: Severe loss of disc height. Prominent endplate osteophytes. Prominent facet joint degenerativ e changes. Degenerative mild spondylo listhesis. Postsurgical changes of the posterior elements. N o focal disc herniation is present. Severe central spinal canal stenosis.Severe bilateral neural fo raminal stenosis. L4-5:Severe loss of disc height. Prominent endplate osteophytes projecting mainly anteriorly. Sever e facet degenerative changes. No focal disc herniation is present. Postsurgical changes at the post erior elements. Moderate central spinal canal stenosis.Severe right and moderate left neural foramin al narrowing. Neural foraminal stenosis. L5-S1: Left-sided pedicle screw noted at L5-S1. Disc spacer present.No focal disc herniation is pres ent. No central spinal canal stenosis.No neural foraminal stenosis. The visualized SI joints and sacrum are unremarkable. Soft tissues: The paraspinal soft tissues are unremarkable. Multiple left renal cysts are noted. No follow-up recommended. IMPRESSION: Postsurgical changes from L3-4 through L5-S1. Severe degenerative disc changes and facet degenerativ e changes at L3-4 and L4-5 causing severe central canal stenosis at L3-4 and moderate central canal s tenosis at L4-5. There is also severe neural foraminal narrowing at these levels. DATA REPOSITORY:
--- NOTE | 2024-08-06 07:45 | DI.MRI_ITS ---
Exam(s) MR LOWER JOINT LT WO EXAM: MR LOWER JOINT LT WO CLINICAL HISTORY: left hip pain,Left leg numbness,M25.552,R20.0,R29.898 TECHNIQUE: Multiplanar multisequence MRI of Pelvis was performed COMPARISON: CR XR HIP LT COMPLETE AP PELVIS from 07/07/2024 FINDINGS: Bones: There is no fracture or contusion pattern. No bone marrow edema is seen. Joints: No significant joint effusion or gross labral defect is present. Small left-sided paralabral cysts near the superior, posterior labrum. Whole or the SI joints and symphysis pubis are well main tained. Musculotendinous structures: Edema in the lateral aspect of the gluteus medius muscle. Probable tea r at the insertion of the gluteus medius tendon. Surrounding fluid. Fluid around the greater trocha nter and beneath the iliotibial band. Soft tissues. Edema in the soft tissues over the area of the lateral left hip. Intrapelvic structures: Sigmoid diverticulosis. Prostate appears small. Bladder unremarkable. IMPRESSION: Gluteus medius muscle sprain and probable tendon tear. Surrounding fluid around the iliotibial band and in the soft tissues. Degenerative changes of the posterosuperior labrum. DATA REPOSITORY:
== END 2024-08-06 01:44 ==
LOC: DI 01:25
PROVIDERS: PCP Student in an Organized Health Care Education/Training Program; Visit Provider Nurse Practitioner
DX: Z98.890 Other specified postprocedural states; M54.17 Radiculopathy, lumbosacral region; R29.898 Other symptoms and signs involving the musculoskeletal system
CPT/HCPCS: 73721; 72148

== ENCOUNTER 2024-12-27 17:37 | Emergency (ER) | payer MEDICARE, OTHER, SELFPAY ==
[2024-12-27 17:48] VITALS: BP 128/67; PULSE 84; RESP 16; TEMP 36.5; O2SAT 98
[2024-12-27 18:53] VITALS: BP 128/67; PULSE 84; RESP 16; TEMP 36.5; O2SAT 98
[2024-12-27] MEDS: Fluorescein STRIPS 100/BOX 1 MG (18:55)
[2024-12-27] MEDS: Tetracaine 0.5% 4 ML BTL (18:55)
--- NOTE | 2024-12-27 22:49 | ED.GENADUL_ITS ---
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 No insulin. Dispense covered brand. (DME) blood-glucose meter Misc See Rx Instructions .MEDSUPPLY Qty: 1 0RF Rx Instructions: As directed to check blood glucose daily. No insulin. Dispense covered brand. (DME) lancets Misc See Rx Instructions .MEDSUPPLY Qty: 100 3RF Rx Instructions: As directed to check blood glucose daily. No insulin. Dispense covered brand. losartan 50 MG tablet 50 mg PO DAILY aspirin [Aspir-81] 81 MG tablet,delayed release (DR/EC) 81 mg PO DAILY gabapentin 300 MG capsule 300 mg PO HS metformin [Glucophage] 1,000 MG tablet 1,000 mg PO BID@0800,1700 Jardiance 10 mg tablet 10 mg PO DAILY Patient Comments: TAKE 1 TABLET BY MOUTH EVERY DAY amitriptyline 25 mg tablet 25 mg PO DAILY Patient Comments: TAKE 1 TABLET BY MOUTH AT BEDTIME pramipexole 0.5 mg tablet 0.5 mg PO DAILY Patient Comments: TAKE 1 TABLET BY MOUTH ONCE DAILY Discharge Instructions Instructions: Corneal Abrasion ED Additional Instructions: use eye medication as instructed call [facility] in the [phone] tylenol as needed for pain return with vision change, worsening pain, or should any new concerns arise Referrals: Leanne Stone DO [Primary Care Provider] - HPI General Date/Time Provider Initiated Documentation: 12/27/24 18:13 . HPI Narrative: This 74-year-old male presents with report of right eye injury. He was using a table saw when a piece of wood bounced back, hitting his right eye. He describes an ache to the right eye this occurred just prior to arrival. He has had prior LASEK surgery and is concerned. He does not wear any corrective lenses nor was he wearing protection at time of incident. He does state he is able to see out of the eye. Related Data Home Medications ?Medication ?Instructions ?Recorded ?Confirmed metformin 1,000 mg tablet 1,000 mg PO BID@0800,1700 06/29/16 12/27/24 (Glucophage) aspirin 81 mg tablet,delayed 81 mg PO DAILY 05/16/17 12/27/24 release (Aspir-) losartan 50 mg tablet 50 mg PO DAILY 05/16/17 12/27/24 gabapentin 300 mg capsule 300 mg PO HS 07/15/17 12/27/24 metoprolol succinate 100 mg 100 mg PO DAILY 01/06/19 12/27/24 capsule sprinkle, ext. release 24 hr empagliflozin 10 mg tablet 10 mg PO DAILY 05/28/21 12/27/24 (Jardiance) blood sugar diagnostic (Blood #100 ea 04/23/22 07/21/24 Glucose Test strips) blood-glucose meter #1 ea 04/23/22 07/21/24 cyanocobalamin (vitamin B-12) 1 tab PO DAILY 04/23/22 12/27/24 lancets #100 ea 04/23/22 07/21/24 amitriptyline 25 mg tablet 25 mg PO DAILY 02/08/24 12/27/24 pramipexole 0.5 mg tablet 0.5 mg PO DAILY 02/08/24 12/27/24 rosuvastatin 10 mg tablet 10 mg PO DAILY 07/21/24 12/27/24 Previous Rx's ?Medication ?Instructions ?Recorded blood sugar diagnostic (Blood #100 ea 04/23/22 Glucose Test strips) blood-glucose meter #1 ea 04/23/22 lancets #100 ea 04/23/22 Allergies Allergy/AdvReac Type Severity Reaction Status Date / Time No Known Allergies Allergy Verified 12/27/24 17:50 General Stated Complaint: EyeProblem LAURA: 4 Exam Narrative Exam Narrative: Patient is alert and oriented he is in no acute distress there is no visible sign of trauma periorbitally, the right thigh has an abrasion approximately 5 mm in the 12 o'clock position overlying the iris, pupil equal round reactive to light and accommodation no Addy's sign, no obvious injection visual acuity 20/70 right eye 20/100 left eye Course Vital Signs Vital signs: Vital Signs Temperature 36.5 C 12/27/24 17:48 Pulse 84 12/27/24 17:48 Respiratory Rate 16 12/27/24 17:48 Blood Pressure 128/67 12/27/24 17:48 Pulse Oximetry 98 12/27/24 17:48 Temperature 36.5 C 12/27/24 18:53 Temperature Source Oral 12/27/24 18:53 Pulse 84 12/27/24 18:53 Respiratory Rate 16 12/27/24 18:53 Blood Pressure 128/67 12/27/24 18:53 Blood Pressure Position Sitting 12/27/24 18:53 Pulse Oximetry 98 12/27/24 18:53 Oxygen Delivery Method Room Air 12/27/24 18:53 Oxygen Flow Rate 0 12/27/24 18:53 Pain Level 2 12/27/24 18:53 Medical Decision Making This 74-year-old male presents with injury to right eye just prior to arrival. Visual acuity was reviewed from nursing staff Fluorescein and tetracaine were instilled in the eye and with slit-lamp exam there was a visualized corneal abrasion without evidence of globe rupture pupils equal round reactive to light and accommodation symptomatic improvement after tetracaine instillation was noted As patient has had prior LASEK surgery and has had trauma to his eye with large corneal abrasion overlying the iris I think it is imperative that patient follow-up with our local ocular team tomorrow a referral to [facility] was placed patient's visual acuity is stable for him and there is no evidence of globe rupture or indication for urgent transfer at this time. He will follow-up tomorrow and referral was placed will take Tylenol as needed for discomfort I did give patient the bottle of tetracaine he is aware that he cannot use more than 1 drop every several of hours for discomfort and should not use it for longer than 24 hours at a time return precautions reviewed in detail and patient expressed understanding Quality:SDOH Health Related Social Needs: No Data to Display PFSH All Active Problems (Updated 12/27/24 @ 18:28 by TYRONE Keen) Abrasion, corneal (Acute) Atrial fibrillation (Chronic) HLD (hyperlipidemia) (Chronic) HTN (hypertension) (Chronic) T2DM (type 2 diabetes mellitus) (Chronic) Medical History Open fracture of tuft of distal phalanx of left thumb Fingernail avulsion, partial (05/28/21) RLS (restless legs syndrome) Anxiety Prostate cancer Insomnia Surgical History Laminectomy L5-S1 (~2001) With spinal fusion Laminectomy (~1999) L2-L5 Family History Mother , Pneumonia at age 92. No problems noted. Father , Parkinson's at age 87. Parkinson's disease Sister No problems noted. Sister No problems noted. Sister No problems noted. Brother No problems noted. Son No problems noted. Son No problems noted. Social History Smoking/Tobacco Use Status: Never Smoking risk assessment performed?: Yes Alcohol Intake: current Alcohol Intake frequency: a few times a week Drug use: Never Substance use type: does not use
== END 2024-12-27 18:56 | disposition home or self-care (01) ==
PROVIDERS: Emergency Provider Physician Assistant; PCP Student in an Organized Health Care Education/Training Program
DX: S05.01XA Injury of conjunctiva and corneal abrasion without foreign body, right eye, initial encounter (principal); I48.91 Unspecified atrial fibrillation; E78.5 Hyperlipidemia, unspecified; I10 Essential (primary) hypertension; E11.9 Type 2 diabetes mellitus without complications; Z79.84 Long term (current) use of oral hypoglycemic drugs; Z79.82 Long term (current) use of aspirin; W44.F9XA Other object of natural or organic material, entering into or through a natural orifice, initial encounter; Y93.89 Activity, other specified
CPT/HCPCS: 99283